=== PATIENT | female | born 1960 | race Caucasian/White ===

== ENCOUNTER → 2018-04-22 | Outpatient (CLI) | payer OTHER ==
[~2018-04-22] MED LIST: ACCUNEB SO1.25 MG/1 INH; ASPIR 8181 MG PO; CHLORPROMAZINE10 M2 PO; FISH OIL 1,001000 M2 PO; INVOKANA300 MG PO; NIASPAN ER 101000 M1 PO; PREDNISONE 20 M20 MG PO; PRINIVIL20 MG PO
--- NOTE | ~2018-04-22 | 2DMMODE ---
[facility] [address] [place] [address] 2 D/M-MODE ECHOCARDIOGRAM Name: MASOUD ESPOSITO ANN Room #: REG CL [facility].#: [id number] Admission: 04/22/18 Attend Phys: Physician not on s Discharge: Date of : 60 Date of Service: 04/22/18 1554 Report #: [id number] THIS REPORT FOR: //name// APPROVED REPORT Study performed: 04/22/2018 14:59:30 EXAM: Comprehensive 2D, Doppler, and color-flow Echocardiogram Patient Location: Out-Patient Status: routine BSA: 2.11 HR: 68 bpm BP: 128/70 mmHg Rhythm: NSR Other Information Study Quality: Adequate Indications Short of breath. Hx: HTN, HLP, DM, asthma, obesity. 2D Dimensions RVDd: 31.66 mm IVSd: 12.13 (7-11mm) LVOT Diam: 20.74 (18-24mm) LVDd: 46.08 mm PWd: 12.48 (7-11mm) LVDs: 29.76 (25-40mm) Aortic Root: 36.21 mm Volumes Left Atrial Volume (Systole) Single Plane 4CH: 45.76 mL Single Plane 2CH: 54.03 mL LA ESV Index: 25.00 mL/m2 Aortic Valve AoV Peak Abdirizak.: 1.71 m/s AO Peak Gr.: 11.73 mmHg LVOT Max P.22 mmHg LVOT Max V: 1.25 m/s YUE Vmax: 2.46 cm2 Mitral Valve E/A Ratio: 0.7 MV Decel. Time: 461.97 ms MV E Max Abdirizak.: 0.68 m/s [facility] [address] [place] [address] 2 D/M-MODE ECHOCARDIOGRAM Name: MASOUD ESPOSITO Room #: REG [facility].#: [id number] Admission: 04/22/18 Attend Phys: Physician not on s Discharge: Date of : 60 Date of Service: 04/22/18 1554 Report #: [id number] MV A Abdirizak.: 0.97 m/s MV PHT: 133.97 ms IVRT: 73.82 ms Pulmonary Valve PV Peak Abdirizak.: 1.25 m/s PV Peak Gr.: 6.25 mmHg Pulmonary Vein P Vein S: 0.52 m/s P Vein A: 0.31 m/s P Vein D: 0.40 m/s P Vein A Dur.: 110.7 msec P Vein S/D Ratio: 1.30 Tricuspid Valve TR Peak Abdirizak.: 2.52 m/s RAP Estimate: 5.00 mmHg TR Peak Gr.: 25.43 mmHg PA Pressure: 30.00 mmHg Left Ventricle The left ventricle is normal size. There is normal LV segmental wall motion. Mild concentric left ventricular hypertrophy. Left ventricular systolic function is normal. LVEF is 60-65%. Mild diastolic dysfunction is present (impaired relaxation pattern). Right Ventricle The right ventricle is normal size. The right ventricular systolic function is normal. Atria The left atrium size is normal. The right atrium size is normal. Aortic Valve The aortic valve is normal in structure. No aortic regurgitation is present. There is no aortic valvular stenosis. Mitral Valve The mitral valve is normal in structure. Trace mitral regurgitation. Tricuspid Valve The tricuspid valve is normal in structure. Trace tricuspid regurgitation. Estimated PAP is 30-35mmHg. Pulmonic Valve Pulmonic valve is not well visualized. Trace pulmonic [facility] [address] [place] [address] 2 D/M-MODE ECHOCARDIOGRAM Name: MASOUD ESPOSITO ANN Room #: REG [facility]#: [id number] Admission: 04/22/18 Attend Phys: Physician not on s Discharge: Date of : 60 Date of Service: 04/22/18 1554 Report #: [id number] regurgitation. Great Vessels The aortic root is normal in size. IVC is normal in size and collapses >50% with inspiration. Pericardium There is no pericardial effusion. <Conclusion> The left ventricle is normal size. Mild concentric left ventricular hypertrophy. LVEF is 60-65%. Mild diastolic dysfunction is present (impaired relaxation pattern). The right ventricle is normal size. The left atrium size is normal. The aortic valve is normal in structure. Trace mitral regurgitation. Trace tricuspid regurgitation. Estimated PAP is 30-35mmHg. The aortic root is normal in size. There is no pericardial effusion. <ELECTRONICALLY SIGNED> By: Tyshawn Griffin MD, FACC 04/22/18 1554 1554 1554 Tyshawn Griffin MD, FACC /INF
== END ==
LOC: CV 09:57
DX: M47.898 Other spondylosis, sacral and sacrococcygeal region (principal); I51.7 Cardiomegaly; E11.9 Type 2 diabetes mellitus without complications; E78.5 Hyperlipidemia, unspecified; J45.909 Unspecified asthma, uncomplicated; E66.9 Obesity, unspecified

== ENCOUNTER → 2018-07-07 | Outpatient (CLI) | payer OTHER | LOC: CV 14:47 → BC 14:47 | DX: C44.91 Basal cell carcinoma of skin, unspecified (principal); Z85.038 Personal history of other malignant neoplasm of large intestine ==

== ENCOUNTER → 2018-11-11 | Outpatient (CLI) | payer OTHER | LOC: CAT 08:11 → RAD 08:11 → CAT 10:25 | DX: Z12.31 Encounter for screening mammogram for malignant neoplasm of breast (principal); J84.10 Pulmonary fibrosis, unspecified ==

== ENCOUNTER → 2019-12-29 | Outpatient (CLI) | payer OTHER | LOC: RAD 08:47 | PROVIDERS: ATTEND Family Medicine | DX: Z12.31 Encounter for screening mammogram for malignant neoplasm of breast (principal) ==

== ENCOUNTER → 2020-05-17 | Outpatient (CLI) | payer OTHER | LOC: CAT 11-16 09:37 | PROVIDERS: ATTEND Pediatrics | DX: J84.10 Pulmonary fibrosis, unspecified (principal); R91.8 Other nonspecific abnormal finding of lung field ==